=== PATIENT | female | born 1955 | race Caucasian/White ===

== ENCOUNTER 2024-02-13 11:48 | Outpatient (REF) | payer OTHER, SELFPAY ==
--- NOTE | 2024-02-13 10:00 | PAPNONF_PTH ---
PATIENT: Marielena Pierce LOC: [facility] U#:[id number] AGE/SX: 68/F ROOM: RE02/13/[address]: Peter Nieves MD : 1955 BED: DIS: 02/13/2024 SPEC #: [id number] RECD: 02/13/24 13:01 STATUS: ANABELLE REKrys #: [id number] KAITLYNN: 02/13/24 10:[address]: Peter Nieves DEPT: [facility] Cytology RECD BY: Audrey Viramontes ENTERED: 02/13/24 13:01 SP TYPE: EUSEBIO FLORES DR: JULIUS HESTER Tissues: 1 - BODY FLUID CYTO(SPUTUM/URINE)[facility] Procedures: BODY FLUID CYTO(URINE/SPUTUM) Comments: [id number] (TV = 45 ml, 30 ml CYTOLYT ADDED) (REFRIGERATED)
== END 2024-02-13 11:49 | disposition home or self-care (01) ==
LOC: LBN 11:48
PROVIDERS: PCP Family Medicine; Visit Provider Urology
DX: N81.10 Cystocele, unspecified (principal); Z85.51 Personal history of malignant neoplasm of bladder
CPT/HCPCS: 88104

== ENCOUNTER 2025-02-11 09:41 | Outpatient (REF) | payer OTHER, SELFPAY ==
--- NOTE | 2025-02-11 09:20 | PAPNONF_PTH ---
PATIENT: Marielena Pierce LOC: [facility] U#:[id number] AGE/SX: 69/F ROOM: RE02/11/[address]: Peter Nieves MD : 1955 BED: DIS: 02/11/2025 SPEC #: [id number] RECD: 02/11/25 13:07 STATUS: ANABELLE INMAN #: [id number] KAITLYNN: 02/11/25 09:[address]: Peter Nieves DEPT: [facility] Cytology RECD BY: Audrey Viramontes ENTERED: 02/11/25 13:07 SP TYPE: EUSEBIO FLORES DR: JULIUS HESTER Tissues: 1 - BODY FLUID CYTO(SPUTUM/URINE)[facility] Procedures: BODY FLUID CYTO(URINE/SPUTUM) Comments: [id number] (TV = 65 ml, 30 ml CYTOLYT ADDED) (REFRIGERATED)
== END 2025-02-11 09:42 | disposition home or self-care (01) ==
LOC: LBN 09:41
PROVIDERS: PCP Family Medicine; Visit Provider Urology
DX: C67.9 Malignant neoplasm of bladder, unspecified (principal)
CPT/HCPCS: 88104